=== PATIENT | female | born 1995 | race Caucasian/White ===

== ENCOUNTER 2019-04-29 01:31 | Emergency (ER) | payer OTHER ==
[~2019-04-29] VITALS: Ht 167.6 cm; Wt 65.8 kg
[2019-04-29 01:35] VITALS: BP_SYST 145
--- NOTE | 2019-04-29 01:40 | NUR ---
Placed in room 4 . Placed on shelter monitor, blood pressure machine and pulse oximeter. To gown for exam. Side rails up. Report given to YOEL JOHNSON.
--- NOTE | 2019-04-29 01:50 | NUR ---
Pt is alert and oriented. Pt C/O lip and tongue swelling and a feeling of a lump in her throat. Lip has minor swelling, tongue appears normal. RR even and unlabored. Pt O2 sat of 99%. Denies pain at this time. No other complaints noted. Will continue to monitor.
--- NOTE | 2019-04-29 02:00 | NUR ---
ER MD SCHULTZ AT BEDSIDE EXAMINING PATIENT.
[2019-04-29] MEDS ORDERED: methylPREDNISolone SOD SUCC/PF 62.5 MG/ML VIAL IM ONE (02:30)
[2019-04-29 03:15] VITALS: BP_SYST 130
--- NOTE | 2019-04-29 03:15 | NUR ---
Patient given written and verbal discharge instructions and verbalizes understanding. ER MD Rubio discussed with patient the results and treatment provided. Patient in stable condition. ID arm band removed. Rx of Ativan and Benadryl given. Patient educated on pain management and to follow up with PMD. Pain Scale 0/10. Opportunity for questions provided and answered. Medication side effect fact sheet provided.
== END 2019-04-29 03:15 | disposition home or self-care (01) ==
LOC: SED 01:31
DX: T78.40XA Allergy, unspecified, initial encounter (principal); X58.XXXA Exposure to other specified factors, initial encounter
CPT/HCPCS: 96372; 99283; J2930

== ENCOUNTER 2019-05-05 20:43 | Emergency (ER) | payer OTHER ==
[~2019-05-05] VITALS: Ht 167.6 cm; Wt 64.9 kg
[2019-05-05 21:13] VITALS: BP_SYST 144
--- NOTE | 2019-05-05 21:19 | NUR ---
Patient triaged and placed in waiting room. VSS and patient appears in no acute distress at this time. Accompanied by self, awaiting available bed, and MD notified of need for MSE.
--- NOTE | 2019-05-05 21:58 | NUR ---
Patient to ER bed 6 to gown for evaluation. Side rails up.
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
--- NOTE | 2019-05-05 22:20 | NUR ---
ER at bedside examining patient.
[2019-05-05] MEDS ORDERED: NACL 0.9% 1,000 ML IV ONE (22:26)
[2019-05-05] MEDS ORDERED: PANTOPRAZOLE SODIUM 40 MG/VIAL (PROTONIX) IVP ONE (22:30)
[2019-05-05] MEDS ORDERED: ONDANSETRON HCL 4 MG/2 ML VIAL IVP ONE (22:30)
[2019-05-05 23:03] LABS: BILIRUBIN,URINE 1+ (NEGATIVE); BLOOD, URINE 3+ (NEGATIVE); CLARITY/URINE HAZY (CLEAR); COLOR,URINE YELLOW (YELLOW); GLUCOSE,URINE NEGATIVE (NEGATIVE); KETONES,URINE 1+ (NEGATIVE); LEUKOCYTE ESTERASE ,URINE TRACE (NEGATIVE); NITRITE, URINE NEGATIVE (NEGATIVE); PH,URINE 6.5 (5.0-8.0); PROTEIN URINE NEGATIVE (NEGATIVE)
[2019-05-05 23:07] LABS: BASOPHILS # (AUTO) 0.1 K/uL (0.0-0.2); BASOPHILS % (AUTO) 1.5 % (0.0-2.0); EOSINOPHILS % (AUTO) 0.9 % (0.0-4.0); HEMATOCRIT 37.8 % (36-48); HEMOGLOBIN 12.4 g/dL (12.0-16.0); LYMPHOCYTES # (AUTO) 1.9 K/uL (1.0-5.5); LYMPHOCYTES % (AUTO) 39.2 % (20.5-51.5); MEAN CORPUSCULAR HEMOGLOBIN 26 pg (27-31); MEAN CORPUSCULAR HGB CONC 33 % (32-36); MEAN CORPUSCULAR VOLUME 80 fL (79.0-98.0); MONOCYTES # (AUTO) 0.7 K/uL (0.0-1.0); MONOCYTES % (AUTO) 13.8 % (1.7-9.3); NEUTROPHILS # (AUTO) 2.2 K/uL (1.8-7.7); NEUTROPHILS % (AUTO) 44.6 % (40.0-70.0); PLATELET COUNT (AUTO) 170 K/uL (130-430); RED BLOOD CELL COUNT(AUTO) 4.71 MIL/uL (4.2-6.2); RED CELL DISTRIBUTION WIDTH 15.6 % (9.0-15.0); WHITE BLOOD COUNT (AUTO) 4.9 K/uL (4.8-10.8)
[2019-05-05 23:25] LABS: CALCIUM 9.2 mg/dL (8.4-11.0); CREATININE 0.81 mg/dL (0.55-1.30); POTASSIUM 4.3 mmol/L (3.5-5.1)
[2019-05-05 23:30] LABS: ALBUMIN 4.2 g/dL (3.4-4.8); TOTAL BILIRUBIN 0.8 mg/dL (0.0-1.0)
[2019-05-05 23:31] LABS: BACTERIA,URINE FEW /HPF (None Seen); MUCUS,URINE 2+ /LPF (None Seen); YEAST,URINE Few /HPF (None Seen)
[2019-05-06 00:42] VITALS: BP_SYST 134
--- NOTE | 2019-05-06 00:42 | NUR ---
Patient given written and verbal discharge instructions and verbalizes understanding. ER MD discussed with patient the results and treatment provided. Patient in stable condition. ID arm band removed. IV catheter removed intact and dressing applied, no active bleeding. Rx of PROTONIX, AND ZOFRAN given. Patient educated on pain management and to follow up with PMD. Pain Scale . Opportunity for questions provided and answered. Medication side effect fact sheet provided.
== END 2019-05-06 00:42 | disposition home or self-care (01) ==
LOC: SED 20:43
DX: R11.10 Vomiting, unspecified (principal); R03.0 Elevated blood-pressure reading, without diagnosis of hypertension
CPT/HCPCS: 36415; 80053; 81000; 84703; 85025; 87086; 96361; 96374; 96375; 99283; C9113; J2405; J7030

== ENCOUNTER 2019-05-27 00:07 | Emergency (ER) | payer OTHER ==
[~2019-05-27] VITALS: Ht 167.6 cm; Wt 61.2 kg
[2019-05-27 00:10] VITALS: BP_SYST 148
[2019-05-27 01:57] LABS: BASOPHILS # (AUTO) 0.1 K/uL (0.0-0.2); BASOPHILS % (AUTO) 1.3 % (0.0-2.0); EOSINOPHILS # (AUTO) 0.1 K/uL (0.0-0.4); EOSINOPHILS % (AUTO) 3.1 % (0.0-4.0); HEMATOCRIT 36.1 % (36-48); HEMOGLOBIN 12.1 g/dL (12.0-16.0); LYMPHOCYTES # (AUTO) 2.2 K/uL (1.0-5.5); LYMPHOCYTES % (AUTO) 46.7 % (20.5-51.5); MEAN CORPUSCULAR HEMOGLOBIN 27 pg (27-31); MEAN CORPUSCULAR HGB CONC 34 % (32-36); MEAN CORPUSCULAR VOLUME 81 fL (79.0-98.0); MONOCYTES # (AUTO) 0.5 K/uL (0.0-1.0); MONOCYTES % (AUTO) 10.8 % (1.7-9.3); NEUTROPHILS # (AUTO) 1.8 K/uL (1.8-7.7); NEUTROPHILS % (AUTO) 38.1 % (40.0-70.0); PLATELET COUNT (AUTO) 159 K/uL (130-430); RED BLOOD CELL COUNT(AUTO) 4.44 MIL/uL (4.2-6.2); RED CELL DISTRIBUTION WIDTH 15.9 % (9.0-15.0); WHITE BLOOD COUNT (AUTO) 4.7 K/uL (4.8-10.8)
[2019-05-27 02:01] LABS: ANION GAP 7 (5-15); CALCIUM 9.2 mg/dL (8.4-11.0); CHLORIDE 103 mmol/L (98-107); CREATININE 0.83 mg/dL (0.55-1.30); GLUCOSE 91 mg/dL (70-99); POTASSIUM 3.8 mmol/L (3.5-5.1); SODIUM SERUM 140 mmol/L (136-145); UREA NITROGEN, BLOOD 10 mg/dL (8-21)
[2019-05-27 02:05] LABS: BILIRUBIN,URINE NEGATIVE (NEGATIVE); BLOOD, URINE 3+ (NEGATIVE); CLARITY/URINE SL HAZY (CLEAR); COLOR,URINE YELLOW (YELLOW); GLUCOSE,URINE NEGATIVE (NEGATIVE); KETONES,URINE NEGATIVE (NEGATIVE); LEUKOCYTE ESTERASE ,URINE 1+ (NEGATIVE); NITRITE, URINE NEGATIVE (NEGATIVE); PROTEIN URINE NEGATIVE (NEGATIVE); UROBILINOGEN,URINE 0.2 (0.2-1.0)
[2019-05-27 02:10] LABS: ALANINE AMINOTRANSFERASE 12 U/L (12-78); ASPARTATE AMINOTRANSFERASE 14 U/L (10-37); TOTAL BILIRUBIN 0.5 mg/dL (0.0-1.0)
[2019-05-27 02:12] LABS: GFR AFRICAN AMERICAN 111 mL/min (>90)
[2019-05-27 02:29] LABS: BACTERIA,URINE FEW /HPF (None Seen); RBC,URINE 50-80 /HPF (0-3)
[2019-05-27] MEDS ORDERED: cefTRIAXone 1 GM IVPB PREMIX 50 ML IV ONE (03:00)
[2019-05-27 04:28] VITALS: BP_SYST 129
== END 2019-05-27 04:28 | disposition home or self-care (01) ==
LOC: SED 00:07
DX: R07.89 Other chest pain (principal); N39.0 Urinary tract infection, site not specified; R03.0 Elevated blood-pressure reading, without diagnosis of hypertension
CPT/HCPCS: 71045; 36415; 80053; 81000; 84484; 85025; 85379; 87040; 87086; 96365; 99284; J0696